=== PATIENT | female | born 1955 | race Caucasian/White ===

== ENCOUNTER 2018-11-17 16:14 | Emergency (ER) | payer OTHER ==
[~2018-11-17] VITALS: Ht 157.5 cm; Wt 81.6 kg
--- NOTE | 2018-11-17 16:25 | NUR ---
CYTOMETRY TECHNOLOGIST CHERIEII AT BEDSIDE FOR EVAL.
[2018-11-17] MEDS ORDERED: FAMOTIDINE (20 MG) 20 MG TABLET ONE (16:27)
[2018-11-17] MEDS ORDERED: predniSONE 20 MG TABLET ONE (16:27)
[2018-11-17] MEDS ORDERED: FAMOTIDINE (20 MG) 20 MG TABLET PO ONE (16:30)
[2018-11-17] MEDS ORDERED: predniSONE 20 MG TABLET PO ONE (16:30)
--- NOTE | 2018-11-17 16:30 | NUR ---
PATIENT A/OX4, NO DISTRESS NOTED, BREATHING EVEN AND UNLABORED, NO SOB NOTED, C/O ITCHING AND GENERALIZED REDNESS. AIRWAY OBSERVED, VITALS STABLE. ATTACHED TO THE MONITOR.
--- NOTE | 2018-11-17 16:58 | NUR ---
Patient in no respiratory distress. Patient discharged to home in stable condition. Written and verbal after care instructions given. Patient verbalizes understanding of instruction.
[2018-11-17 16:59] VITALS: BP 152/87
== END 2018-11-17 16:59 | disposition home or self-care (01) ==
LOC: ER 16:19
DX: L50.9 Urticaria, unspecified (principal); I10 Essential (primary) hypertension; E78.00 Pure hypercholesterolemia, unspecified; Z95.5 Presence of coronary angioplasty implant and graft
CPT/HCPCS: 99283; J7512